=== PATIENT | female | born 1935 | race African-American/Black ===

== ENCOUNTER → 2016-10-28 | Outpatient (CLI) | payer BC ==
[2016-03-27 04:00] VITALS: BP 161/70
[~2016-10-28] MED LIST: NITR0.4T22 SL
--- NOTE | 2016-10-28 14:59 | RAD ---
DATE: 10/28/2016 EXAM: DIGITAL SCREEN BILAT W/CAD HISTORY: Routine screening COMPARISON: 08/22/2015 This study was interpreted with the benefit of Computerized Aided Detection (CAD). The breast parenchyma is heterogeneously dense, which could reduce sensitivity of mammography. Breast parenchyma level C. FINDINGS: No new or enlarging breast densities are seen. Benign type calcifications are present. No suspicious microcalcifications have developed. IMPRESSION: Stable mammograms without evidence of malignancy. BI-RADS CATEGORY: 2 BENIGN FINDING(S) RECOMMENDED FOLLOW-UP: 12M 12 MONTH FOLLOW-UP PQRS compliance statement: Patient information was entered into a reminder system with a target due date for the next mammogram. Mammography is a sensitive method for finding small breast cancers, but it does not detect them all and is not a substitute for careful clinical examination. A negative mammogram does not negate a clinically suspicious finding and should not result in delay in biopsying a clinically suspicious abnormality. "Our facility is accredited by the [employer] Mammography [employer]."
== END | disposition home or self-care (01) ==
LOC: MAMMO 10:30
PROVIDERS: ATTEND Family Medicine
DX: Z12.31 Encounter for screening mammogram for malignant neoplasm of breast (principal)
CPT/HCPCS: G0202; 77067

== ENCOUNTER → 2017-05-29 | Outpatient (CLI) | payer BC | END | disposition home or self-care (01) | LOC: ECHO 12:41 | DX: I27.20 Pulmonary hypertension, unspecified (principal); I37.1 Nonrheumatic pulmonary valve insufficiency; I34.0 Nonrheumatic mitral (valve) insufficiency | CPT/HCPCS: 93306 ==

== ENCOUNTER → 2017-12-12 | Outpatient (CLI) | payer BC | END | disposition home or self-care (01) | LOC: MRI 10:16 | DX: S83.241A Other tear of medial meniscus, current injury, right knee, initial encounter (principal); M17.11 Unilateral primary osteoarthritis, right knee; M71.21 Synovial cyst of popliteal space [Baker], right knee; M25.461 Effusion, right knee; I10 Essential (primary) hypertension; X58.XXXA Exposure to other specified factors, initial encounter; Y93.89 Activity, other specified; Y92.89 Other specified places as the place of occurrence of the external cause; Y99.8 Other external cause status | CPT/HCPCS: 73721 ==

== ENCOUNTER → 2019-04-10 | Outpatient (CLI) | payer BC ==
[2016-03-27 04:00] VITALS: BP 161/70
--- NOTE | 2019-04-10 15:49 | RAD ---
DATE: 04/10/2019. EXAM: MAMMO NORMA SCREENING BILATERAL. HISTORY: Routine mammographic screening. COMPARISON: 10/28/2016. This study was interpreted with the benefit of Computerized Aided Detection (CAD). FINDINGS: Breast Density: HETERO The breast parenchyma is heterogenously dense, which could reduce sensitivity of mammography. Breast parenchyma level C.. Vascular calcifications are benign. The parenchymal pattern is stable. There are no suspicious masses, microcalcifications or architectural distortion. BI-RADS CATEGORY: 2 BENIGN FINDING(S). RECOMMENDED FOLLOW-UP: 12M 12 MONTH FOLLOW-UP. PQRS compliance statement: Patient information was entered into a reminder system with a target due date 04/10/2020 for the next mammogram. Mammography is a sensitive method for finding small breast cancers, but it does not detect them all and is not a substitute for careful clinical examination. A negative mammogram does not negate a clinically suspicious finding and should not result in delay in biopsying a clinically suspicious abnormality. "Our facility is accredited by the [employer] Mammography [employer]."
== END | disposition home or self-care (01) ==
LOC: MAMMO 08:20
PROVIDERS: ATTEND Family Medicine
DX: Z12.31 Encounter for screening mammogram for malignant neoplasm of breast (principal); N64.89 Other specified disorders of breast
CPT/HCPCS: 77063; 77067

== ENCOUNTER → 2019-10-23 | Outpatient (CLI) | payer OTHER ==
[2016-03-27 04:00] VITALS: BP 161/70
--- NOTE | 2019-10-23 11:11 | RAD ---
Indication: Lymphedema. Ultrasound was utilized to obtain a peak systolic velocity of the ankle and brachial arterial vasculature in order to calculate and ankle brachial index. Peak systolic velocities are measured in mm of mercury. RIGHT: Ankle:127 Brachial:152 SHAYE:0.84 LEFT: Ankle:112 Brachial:145 SHAYE:0.78 IMPRESSION: Ankle-brachial index is 0.84 on the right and 0.78 on the left which is decreased and can be seen with vascular disease of the bilateral legs. Electronically signed by: Justin Lopez MD (10/23/2019 11:08 AM) [id number]
== END | disposition home or self-care (01) ==
LOC: US 10:07
PROVIDERS: ATTEND Family Medicine
DX: I89.0 Lymphedema, not elsewhere classified (principal)
CPT/HCPCS: 93922

== ENCOUNTER → 2020-04-13 | Outpatient (CLI) | payer OTHER ==
[2016-03-27 04:00] VITALS: BP 161/70
--- NOTE | 2020-04-14 08:46 | RAD ---
DATE: 04/13/2020 10:05 AM EXAM: MAMMO NORMA SCREENING BILATERAL HISTORY: Screening COMPARISON: 04/10/2019, 10/28/2016 Bilateral CC and MLO views of the breasts were performed. Bilateral breast tomosynthesis was performed in CC and MLO projections. This study was interpreted with the benefit of Computerized Aided Detection (CAD). FINDINGS: Breast Density: HETERO The breast parenchyma Is heterogeneously dense, which could reduce sensitivity of mammography. Breast parenchyma level C No suspicious masses, microcalcifications or architectural distortion is present to suggest malignancy in either breast. The visualized axillae are unremarkable. IMPRESSION: No mammographic evidence of malignancy. BI-RADS CATEGORY: 1 NEGATIVE RECOMMENDED FOLLOW-UP: 12M 12 MONTH FOLLOW-UP Annual screening mammography is recommended, unless clinically indicated sooner based on symptoms or change in physical exam. PQRS compliance statement: Patient information was entered into a reminder system with a target due date for the next mammogram. Mammography is a sensitive method for finding small breast cancers, but it does not detect them all and is not a substitute for careful clinical examination. A negative mammogram does not negate a clinically suspicious finding and should not result in delay in biopsying a clinically suspicious abnormality. "Our facility is accredited by the [employer] Mammography [employer]."
== END ==
LOC: MAMMO 09:57
PROVIDERS: ATTEND Family Medicine
DX: Z12.31 Encounter for screening mammogram for malignant neoplasm of breast (principal)
CPT/HCPCS: 77063; 77067

== ENCOUNTER → 2020-08-14 | Outpatient (CLI) | payer OTHER ==
[2016-03-27 04:00] VITALS: BP 161/70
--- NOTE | 2020-08-14 14:23 | KCIC ---
XR KNEE_RT 1-2 VIEWS History: Reason: RIGHT KNEE PAIN / Spl. Instructions: Ongoing right knee pain, medially. / History: Comparison: Right knee radiographs 06/21/2018. Technique: AP and lateral views of the right knee Findings: No fracture or dislocation. Moderate to severe degenerative changes with high-grade medial tibiofemoral and patellofemoral compar tment joint space narrowing. Large tricompartmental osteophytes. Trace suprapatellar effusion. No foc al soft tissue swelling. Impression: 1. Moderate to severe right knee osteoarthritis. No acute osseous abnormality. Electronically signed by: Rg Brown MD (08/14/2020 2:20 PM) [facility]
== END ==
LOC: KCIC 09:24
PROVIDERS: ATTEND Family Medicine
DX: M17.11 Unilateral primary osteoarthritis, right knee (principal)
CPT/HCPCS: 73560

== ENCOUNTER → 2020-09-25 | Outpatient (CLI) | payer OTHER ==
[2016-03-27 04:00] VITALS: BP 161/70
--- NOTE | 2020-09-25 16:28 | KCIC ---
Chest, PA and Lateral: Technique: PA and lateral views of the chest were obtained. History: Productive cough. Comparison: 03/27/2016. Findings: Mild cardiomegaly. Mild hyperinflated lungs. Minimal bibasilar lung atelectasis or infiltrates. IMPRESSION: 1. Mild bibasilar lung atelectasis. Electronically signed by: Alberto Benavidez MD (09/25/2020 4:26 PM) [id number]
== END ==
LOC: KCIC 13:22
PROVIDERS: ATTEND Family Medicine
DX: J98.11 Atelectasis (principal); R05 Cough
CPT/HCPCS: 71046